=== PATIENT | female | born 1995 ===

== ENCOUNTER 2023-02-21 08:01 | Inpatient (IN) | payer SELFPAY ==
[2023-02-21] MEDS ORDERED: Misoprostol 200 MCG Tab PO PRN (08:50)
[2023-02-21] MEDS ORDERED: Sodium Chloride 0.9% 2.5 ML Syringe FLUSH PRN (08:50)
[2023-02-21] MEDS ORDERED: Ondansetron 4 MG/2 ML SDV IVPUSH PRN (08:50)
[2023-02-21] MEDS ORDERED: Sodium Chloride 0.9% 10 ML Syringe FLUSH PRN (08:50)
[2023-02-21] MEDS ORDERED: Butorphanol 1 MG/ML SDV IVPUSH PRN (08:50)
[2023-02-21] MEDS ORDERED: Tranexamic Acid 1,000 MG in Sodium Chloride 0.9% 100 ML IV PRN (08:50)
[2023-02-21] MEDS ORDERED: Water For Irrigation,Sterile 1,000 ML Container IRR PRN (08:50)
[2023-02-21] MEDS ORDERED: Lidocaine 1% 50 ML MDV INJECT PRN (08:50)
[2023-02-21] MEDS ORDERED: Methylergonovine 0.2 MG/1 ML Amp IM PRN (08:50)
[2023-02-21] MEDS ORDERED: Sodium Chloride 0.9% 20 ML SDV IV PRN (08:50)
[2023-02-21] MEDS ORDERED: Carboprost Tromethamine 250 MCG/1 mL Vial IM PRN (08:50)
[2023-02-21] MEDS ORDERED: Phenylephrine HCl 0.5 MG/5 ML AMP IVPUSH PRN (08:56)
[2023-02-21] MEDS ORDERED: ePHEDrine 50 MG/ML SDV IVPUSH PRN ×2 (08:56)
[2023-02-21] MEDS ORDERED: Ropivacaine HCl/PF 400 MG in Premix Bag 1 BAG EPIDUR SCH (09:00)
[2023-02-21] MEDS ORDERED: Oxytocin/0.9 % Sodium Chloride 30 UNIT/500 ML BAG IV SCH ×2 (09:00→17:15)
[2023-02-21 10:14] LABS: HEMATOCRIT 35.3 % (36.0-46.0); HEMOGLOBIN 11.6 g/dL (12.0-16.0); MEAN CORPUSCULAR HEMOGLOBIN 26.9 pg (27.0-32.0); MEAN CORPUSCULAR HGB CONC 32.9 g/dL (31.0-37.0); MEAN CORPUSCULAR VOLUME 81.7 fL (80.0-98.0); MEAN PLATELET VOLUME 12.1 fL (7.40-12.00); RED BLOOD CELL COUNT 4.32 M/uL (4.30-5.90); WHITE BLOOD CELL COUNT,WBC 9.89 K/uL (4.0-11.0)
[2023-02-21] MEDS: Lactated Ringers 1,000 ML IV SCH ×2 (16:07→17:57)
[2023-02-21] MEDS ORDERED: Terbutaline 1 MG/ML SDV SUBCUT PRN (17:14)
[2023-02-21] MEDS ORDERED: Dexmedetomidine 200 MCG/2 ML SDV ONE (23:09)
[2023-02-21] MEDS ORDERED: Lidocaine 2% with EPINEPHrine 1:200,000 20 ML SDV ONE (23:10)
[2023-02-22] MEDS: Lactated Ringers 1,000 ML IV SCH (00:29)
[2023-02-22] MEDS ORDERED: Ampicillin 2 GM in Sodium Chloride 0.9% 100 ML IV SCH (04:30)
[2023-02-22] MEDS ORDERED: Acetaminophen 325 MG Tab PO ONE (06:48)
[2023-02-22] MEDS ORDERED: Docusate Sodium 100 MG Cap PO PRN (08:14)
[2023-02-22] MEDS ORDERED: Bisacodyl 10 MG Supp RECTAL PRN (08:14)
[2023-02-22] MEDS ORDERED: Measles, Mumps & Rubella Vaccine 0.5 ML SDV SUBCUT ONE (08:14)
[2023-02-22] MEDS ORDERED: Acetaminophen 500 MG Tab PO PRN ×2 (08:14)
[2023-02-22] MEDS ORDERED: Witch Hazel Medicated Pads 40/Jar TOP PRN (08:14)
[2023-02-22] MEDS ORDERED: Ibuprofen 400 MG Tab PO PRN (08:14)
[2023-02-22] MEDS ORDERED: Lanolin 100% Cream 7 GM Tube TOP PRN (08:14)
[2023-02-22] MEDS ORDERED: oxyCODONE 5 MG Tab PO PRN (08:14)
[2023-02-22] MEDS ORDERED: Aluminum Hydroxide/Magnesium Hydroxide/Simethicone XS Susp 30 ML Cup PO PRN (08:14)
[2023-02-22] MEDS ORDERED: Famotidine 20 MG Tab PO PRN (08:14)
[2023-02-22] MEDS ORDERED: Benzocaine/Menthol 20%-0.5% Spray 78 GM Cannister TOP PRN (08:14)
[2023-02-22] MEDS ORDERED: Simethicone 80 MG Tab.Chew PO PRN (08:14)
[2023-02-22] MEDS ORDERED: Ibuprofen 800 MG Tab PO PRN (08:14)
[2023-02-23 03:20] LABS: HEMATOCRIT 27.8 % (36.0-46.0); HEMOGLOBIN 9.2 g/dL (12.0-16.0)
== END 2023-02-23 15:05 | disposition home or self-care (01) | DRG 805 ==
LOC: MW.OBCHECK 08:01 → MW.OB 08:03 → MW.OBCHECK 08:38 → MW.OB 08:39 → OBSVTOIN 02-22 07:30 → MW.OB 02-22 11:24
PROVIDERS: ADMIT Obstetrics & Gynecology; ATTEND Obstetrics & Gynecology
PROC: 10D07Z6 Extraction of Products of Conception, Vacuum, Via Natural or Artificial Opening (ICD-10-PCS; principal; 2023-02-22)
PROC: 0HQ9XZZ Repair Perineum Skin, External Approach (ICD-10-PCS; 2023-02-22)
PROC: 3E0R3BZ Introduction of Anesthetic Agent into Spinal Canal, Percutaneous Approach (ICD-10-PCS; 2023-02-22)
PROC: 00HU33Z Insertion of Infusion Device into Spinal Canal, Percutaneous Approach (ICD-10-PCS; 2023-02-22)
PROC: 10H07YZ Insertion of Other Device into Products of Conception, Via Natural or Artificial Opening (ICD-10-PCS; 2023-02-22)
DX: O42.02 Full-term premature rupture of membranes, onset of labor within 24 hours of rupture (principal); O41.1230 Chorioamnionitis, third trimester, not applicable or unspecified; Z37.0 Single live birth; O66.0 Obstructed labor due to shoulder dystocia; O75.81 Maternal exhaustion complicating labor and delivery; O70.0 First degree perineal laceration during delivery; Z3A.40 40 weeks gestation of pregnancy
CPT/HCPCS: 36415; 59409; 59414; 84112; 85014; 85018; 85027; 86592; 86850; 86900; 86901; A9270-GY; J0290; J1580; J2210; J2405; J2590; J3490; J7120